=== PATIENT | male | born 1970 | race African-American/Black ===

== ENCOUNTER 2019-07-13 15:46 | Emergency (ER) | payer BC ==
[2019-07-13] MEDS ORDERED: TETANUS,DIPH,PERTUSS(ACELL) VACCINE 0.5 ML SYRINGE IM ONE (15:55)
--- NOTE | 2019-07-13 15:55 | Event Note ---
ED Screening Note ED Screening Note: possible snake bite one hour ago states small snake bite to the dorsal left foot unsure of last tetanus feels like "ant bite" no numbness or edema This initial assessment/diagnostic orders/clinical plan/treatment(s) is/are subject to change based on patients health status, clinical progression and re-assessment by fellow clinical providers in the ED. Further treatment and workup at subsequent clinical providers discretion. Patient/guardian urged not to elope from the ED as their condition may be serious if not clinically assessed and managed. Initial orders include: tetanus and further eval
[2019-07-13 15:57] VITALS: BP 150/90
--- NOTE | 2019-07-13 16:46 | Emergency Department Report ---
ED Extremity Problem HPI - General Chief complaint: Animal Bite Stated complaint: POSS SNAKE BITE/LEFT FOOT Time Seen by Provider: 07/13/19 15:53 Source: patient Mode of arrival: Ambulatory Limitations: No Limitations - History of Present Illness Initial comments: 49-year-old male presents to the emergency room concerned that he may have bitten by a snake. Patient reports it was on the top of his left foot. Patient denies any chest pain shortness of breathing patient reports that he feels like he is a little sleepy. Patient reports she saw a small snake about 7 inches long that was brown. Onset/Timin -: hour(s) Location: left, other (t) History of Same: No Severity scale (0 -10): 9 Quality: burning Improves with: nothing Associated Symptoms: denies other symptoms. denies: chest pain, shortness of breath, fever, myalgias - Related Data Allergies Allergy/AdvReac Type Severity Reaction Status Date / Time No Known Allergies Allergy Verified 07/13/19 15:49 ED Review of Systems ROS: Stated complaint: POSS SNAKE BITE/LEFT FOOT Other details as noted in HPI Comment: All other systems reviewed and negative ED Past Medical Hx - Past Medical History Previous Medical History?: No - Surgical History Past Surgical History?: No - Social History Smoking Status: Never Smoker Substance Use Type: None ED Physical Exam - General Limitations: No Limitations General appearance: alert, in no apparent distress - Head Head exam: Present: atraumatic, normocephalic - Eye Eye exam: Present: normal appearance - ENT ENT exam: Present: mucous membranes moist - Respiratory Respiratory exam: Present: normal lung sounds bilaterally. Absent: respiratory distress - Cardiovascular Cardiovascular Exam: Present: regular rate, normal rhythm. Absent: systolic murmur, diastolic murmur, rubs, gallop - Neurological Exam Neurological exam: Present: alert, oriented X3, normal gait - Psychiatric Psychiatric exam: Present: normal affect, normal mood - Skin Skin exam: Present: warm, dry, intact, normal color. Absent: erythema, petechiae, pallor, ecchymosis ED Course Vital Signs 07/13/19 15:53 Temperature 98.1 F Pulse Rate 85 Respiratory 18 Rate Blood Pressure 150/90 O2 Sat by Pulse 97 Oximetry ED Medical Decision Making - Medical Decision Making 49-year-old male presents to the emergency room concerned that he may have bitten by a snake. Patient reports it was on the top of his left foot. Patient denies any chest pain shortness of breathing patient reports that he feels like he is a little sleepy. Patient reports she saw a small snake about 7 inches long that was brown. Discussed case with Dr. Du. Patient has no signs of infection irritation swelling nonerythematous. Patient take [id number] Tylenol or Motrin for pain. Patient is to return back to the emergency room if he notices any swelling shortness of breath chest pain. Critical care attestation.: If time is entered above; I have spent that time in minutes in the direct care of this critically ill patient, excluding procedure time. ED Disposition Clinical Impression: Animal bite of foot Disposition: [id number] TO HOME OR SELFCARE Is pt being admited?: No Does the pt Need Aspirin: No Condition: Stable Instructions: Animal Bite (ED) Additional Instructions: Take Tylenol and/or Motrin as needed for pain management. Return back to the emergency room if you have any increased swelling shortness of breath chest pain. Referrals: [facility] [Provider Group] - 3-5 Days
== END 2019-07-13 17:03 | disposition home or self-care (01) ==
LOC: ED 15:46
DX: S91.352A Open bite, left foot, initial encounter (principal); W59.11XA Bitten by nonvenomous snake, initial encounter; Y93.89 Activity, other specified; Y92.89 Other specified places as the place of occurrence of the external cause; Y99.8 Other external cause status
CPT/HCPCS: 90471; 90715; 99282